=== PATIENT | female | born 1990 | race African-American/Black ===

== ENCOUNTER → 2017-06-01 | Outpatient (REF) | payer BC, OTHER ==
[~2017-06-01] MED LIST: ADVI200T PO; STUACAP PO; TYLE167L PO
== END ==
LOC: M SFHCPLAZ 11:36
PROVIDERS: ATTEND Family Medicine
DX: Z12.4 Encounter for screening for malignant neoplasm of cervix (principal)

== ENCOUNTER → 2017-09-30 | Outpatient (REF) | payer BC ==
[2017-09-30 12:12] LABS: TOTAL 25(OH) VITAMIN D 28.5 NG/ML (30.0-100.0)
== END ==
LOC: M SFHCPLAZ 08:11
DX: E55.9 Vitamin D deficiency, unspecified (principal)
CPT/HCPCS: 82306

== ENCOUNTER → 2019-06-21 | Outpatient (REF) | payer OTHER ==
[2019-06-23 14:51] LABS: HPV HYBRID CAPTURE II Negative (Negative)
== END ==
LOC: M SFHCWAGY 09:03
PROVIDERS: ATTEND Nurse Practitioner Women's Health
DX: Z12.4 Encounter for screening for malignant neoplasm of cervix (principal)

== ENCOUNTER → 2022-10-02 | Outpatient (CLI) | payer BC | LOC: M PLALAB 12:12 | PROVIDERS: ATTEND Nurse Practitioner Family | DX: Z01.419 Encounter for gynecological examination (general) (routine) without abnormal findings (principal); Z12.4 Encounter for screening for malignant neoplasm of cervix ==

== ENCOUNTER 2024-10-27 04:31 | Emergency (ER) | payer OTHER ==
[~2024-10-27] VITALS: Ht 160 cm; Wt 64.6 kg
[2024-10-27] MEDS ORDERED: MUCI120T PO (04:36)
[2024-10-27 08:58] LABS: BASO # 0.1 10^3/uL (0.0-0.2); BASO % 0.7 % (0.0-1.0); EOS # 1.8 10^3/uL (0.0-0.5); HEMATOCRIT 38.2 % (36.0-47.0); HEMOGLOBIN 12.2 g/dl (12.0-15.5); LYMPH # 2.6 10^3/uL (1.5-5.0); LYMPH % 29.2 % (24.0-44.0); MEAN CORPUSCULAR HEMOGLOBIN 26.2 pg (27.0-33.0); MEAN CORPUSCULAR HGB CONC 31.9 g/dl (32.0-36.5); MEAN CORPUSCULAR VOLUME 82.2 fl (80.0-96.0); MONO # 0.4 10^3/uL (0.0-0.8); MONO % 4.8 % (2.0-8.0); NEUTROPHILS % 44.8 % (36.0-66.0); PLATELET COUNT, AUTOMATED 397 10^3/uL (150-450); RED BLOOD COUNT 4.65 10^6/uL (4.00-5.40); WHITE BLOOD COUNT 8.9 10^3/uL (4.0-10.0)
[2024-10-27 09:11] LABS: EOS % 20.3 % (0.0-3.0)
[2024-10-27 09:28] LABS: BLOOD UREA NITROGEN 7 MG/DL (9-23); CALCIUM LEVEL 8.8 MG/DL (8.5-10.1); CARBON DIOXIDE LEVEL 25 MMOL/L (20-31); CHLORIDE LEVEL 107 MMOL/L (98-107); CREATININE FOR GFR 0.54 MG/DL (0.55-1.30); GLOMERULAR FILTRATION RATE > 60.0 (>60); GLUCOSE, FASTING 79 MG/DL (60-100); POTASSIUM SERUM 4.5 MMOL/L (3.5-5.1); SODIUM LEVEL 143 MMOL/L (136-145)
[2024-10-27 09:30] LABS: THYROID STIMULATING HORMONE 1.337 uIU/ML (0.55-4.78); THYROXINE (T4) 10.1 UG/DL (4.5-10.9)
[2024-10-27] MEDS ORDERED: ISOVUE-370 76% 100ML VIAL As Ordered ONE (09:33)
[2024-10-27] MEDS: dexAMETHasone 20MG/5ML VIAL IV ONE (10:01)
[2024-10-27] MEDS: ALBUTEROL SULFATE 2.5MG/0.5ML INH NEB SOLN NEB ONE (10:21)
[2024-10-27 10:44] VITALS: O2SAT 96
[2024-10-27] MEDS ORDERED: ALBU2.5V10 INH (11:03)
[2024-10-27] MEDS ORDERED: CETI-24 PO (11:03)
[2024-10-27] MEDS ORDERED: MEDR4TAB PO (11:03)
[2024-10-27] MEDS ORDERED: AZIT-12 PO (11:03)
[2024-10-27] MEDS ORDERED: NEBU1EAC78 MC (11:03)
[2024-10-27 11:10] VITALS: BP 110/59; TEMP 98; O2SAT 93
== END 2024-10-27 11:20 | disposition home or self-care (01) ==
LOC: M ED 04:31
DX: J82.82 Acute eosinophilic pneumonia (principal); R06.02 Shortness of breath; G40.909 Epilepsy, unspecified, not intractable, without status epilepticus; Z79.52 Long term (current) use of systemic steroids; Z79.2 Long term (current) use of antibiotics; Z79.899 Other long term (current) drug therapy
CPT/HCPCS: 71046; 71275; 80047; 80048; 83880; 84436; 84443; 84702; 85025; 87205; 87486; 87581; 87633; 87798; 93005; 93041; 94760; 96374; 99285; J1100; Q9967

== ENCOUNTER 2024-11-27 08:48 | Emergency (ER) | payer OTHER ==
[~2024-11-27] VITALS: Ht 162.6 cm; Wt 64.2 kg
[~2024-11-27 08:48] MED LIST changes: +ALBU2.5V10 INH; +AZIT-12 PO; +CETI-24 PO; +MEDR4TAB PO; +MUCI120T PO; +NEBU1EAC78 MC
[2024-11-27] MEDS: IPRATROPIUM 0.5MG/ALBUTEROL 2.5MG INH SOL UD 3ML NEB PRN (10:31)
[2024-11-27] MEDS ORDERED: ALBU2.5V10 NEB (13:10)
[2024-11-27] MEDS ORDERED: MONT10TA97 PO (13:10)
[2024-11-27] MEDS ORDERED: SYMB80INH INH (13:10)
[2024-11-27 13:19] VITALS: BP 111/68; TEMP 98.7; O2SAT 97
== END 2024-11-27 13:21 | disposition home or self-care (01) ==
LOC: M ED 08:48
DX: J45.909 Unspecified asthma, uncomplicated (principal); R56.9 Unspecified convulsions